=== PATIENT | female | born 1970 | race Caucasian/White ===

== ENCOUNTER 2021-10-29 20:09 | Emergency (ER) | payer OTHER ==
[~2021-10-29] VITALS: Ht 162.6 cm; Wt 77.1 kg
--- NOTE | 2021-10-29 22:20 | NUR ---
BIBS C/O GLF OFF SCOOTER, LANDED ON BOTH HANDS C/O RIGHT ARM PAIN -HEADTRUAMA -KO. PATIENT ALERT AND ORIENTED X3. AMBULATORY WITH NON LABORED BREATHING IN BED 04 ON MONITOR AND POX.
[2021-10-29] MEDS ORDERED: ONDANSETRON 4 MG TAB.RAPDIS ONE (23:29)
[2021-10-29] MEDS ORDERED: HYDROMORPHONE INJ 2 MG/ML DISP.SYRIN ONE (23:29)
[2021-10-29] MEDS: HYDROMORPHONE INJ 2 MG/ML DISP.SYRIN IM ONE (23:33)
[2021-10-29] MEDS: ONDANSETRON 4 MG TAB.RAPDIS SL ONE (23:33)
[2021-10-30] MEDS ORDERED: HYDR-4209 PO (00:40)
[2021-10-30] MEDS ORDERED: ONDA4TAB5 PO (00:40)
--- NOTE | 2021-10-30 00:50 | NUR ---
Patient discharged to home in stable condition. Written and verbal after care instructions given. Patient verbalizes understanding of instruction. rx given, sling to right arm applied.
[2021-10-30 00:52] VITALS: BP 138/70
== END 2021-10-30 01:03 | disposition home or self-care (01) ==
LOC: ER 20:13
DX: S50.11XA Contusion of right forearm, initial encounter (principal); F32.A Depression, unspecified; W05.1XXA Fall from non-moving nonmotorized scooter, initial encounter; Y93.89 Activity, other specified; Y92.89 Other specified places as the place of occurrence of the external cause; Y99.8 Other external cause status
CPT/HCPCS: 29125; 73090; 96372; 99283; J1170; Q0162